=== PATIENT | male | born 1960 | race Caucasian/White ===

== ENCOUNTER 2018-04-13 03:32 | Emergency (ER) | payer BC ==
--- NOTE | 2018-04-13 03:45 | Emergency Department Record ---
History of Present Illness - General Chief Complaint: Fall Injury Stated Complaint: "I THINK I DISLOCATED MY SHOULDER" Time Seen by Provider: 04/13/18 03:38 Source: Patient Mode of Arrival: Ambulatory Limitations: No limitations - History of Present Illness Initial Comments: The patient is here due to R shoulder pain. He slipped and fell onto the R shoulder about 2 hours ago and it is very painful. He denies hitting his head or any other injury. The patient has no hx of R shoulder injuries. The patient had been out drinking prior to the fall and last drank about 2.5 hours ago. Complaint: Fall Onset/Timin -: Hour(s) Fall From: Standing When Fall Occurred: 1-[address] [employer] [address] Fall Occurred: Home Loss of Consciousness: None Prolonged Down Time?: No Symptoms Prior to Fall: None Severity scale (1-10): 10 Associated Symptoms: Denies - Related Data Home Medications Medication Instructions Recorded Confirmed Last Taken Metoprolol Succinate [Toprol Xl] 100 mg PO DAILY 04/13/18 04/13/18 04/12/18 Previous Rx's Medication Instructions Recorded Naproxen [Naprosyn] 500 mg PO BID #14 tablet. 04/13/18 Allergies Allergy/AdvReac Type Severity Reaction Status Date / Time No Known Drug Allergies Allergy Verified 04/13/18 03:34 Travel Screening - Travel/Exposure Within Last 30 Days Have you traveled within the last 30 days?: No - Travel Symptoms Symptom Screening: None Review of Systems Constitutional: Denies: Chills, Fever Eyes: Denies: Eye discharge ENT: Denies: Congestion Respiratory: Denies: Cough, Dyspnea Past Medical History - SOCIAL HISTORY Smoking Status: Never smoker - RESPIRATORY Hx Respiratory Disorders: Yes Hx Sleep Apnea: Yes Hx of CPAP: Yes - CARDIOVASCULAR Hx Cardio Disorders: Yes Hx Hypertension: Yes - NEURO Hx Neuro Disorders: No - GI Hx GI Disorders: No - Hx Genitourinary Disorders: No - ENDOCRINE Hx Endocrine Disorders: No - MUSCULOSKELETAL Hx Musculoskeletal Disorders: No - PSYCH Hx Psych Problems: No - HEMATOLOGY/ONCOLOGY Hx Hematology/Oncology Disorders: No Family Medical History Any Significant Family History?: Yes Hx Diabetes: Mother Physical Exam - General General Appearance: Alert, Oriented x3, Cooperative, No acute distress - Head Head exam: Atraumatic, Normocephalic - Eye Eye exam: Normal appearance, PERRL - Neck Neck exam: Normal inspection, Full ROM. negative: Tenderness - Respiratory Respiratory exam: Normal lung sounds bilaterally. negative: Respiratory distress - Cardiovascular Cardiovascular Exam: Regular rate, Normal rhythm, Normal heart sounds - GI/Abdominal GI/Abdominal exam: Other (The patient is morbidly obese.). negative: Tenderness - Extremities Extremities exam: Tenderness. negative: Normal inspection (There is proximal R humerus tenderness with decreased R shoulder ROM due to pain.), Full ROM Image of Full Body: 1 - Area of pain and tenderness. - Neurological Neurological exam: Alert. negative: Motor sensory deficit Course Vital Signs 04/13/18 03:35 Temperature 98.1 F Pulse Rate 88 Respiratory 20 Rate Blood Pressure 166/103 Pulse Ox 92 L - Reevaluation(s) Reevaluation #1: Procedure note: The patient was given 4 mg of Morphine for pain control and his R shoulder was reduced with traction/ countertraction. There were no complications and the R arm and shoulder were NVI distally after the procedure. 04/13/18 04:30 Reevaluation #2: The patient is doing very well at this time. I did explain the need to stay in the sling for a week and have the shoulder rechecked this week for any rotator cuff injury. 04/13/18 04:37 Medical Decision Making - Data Complexity MDM Data: X-Ray Ordered and/or Reviewed - Radiology Data Radiology results: Report reviewed (R shoulder: Anterior dislocation. Poss. fx at R acromion at AC joint (nontender on exam)) Disposition Disposition: Discharge Clinical Impression: Shoulder dislocation Qualifiers: Encounter type: initial encounter Laterality: right Qualified Code(s): S43.004A - Unspecified dislocation of right shoulder joint, initial encounter Disposition: Home, Self-Care Condition: (2) Stable Instructions: Shoulder Dislocation (ED) Additional Instructions: Please take the Naprosyn for pain and ice the shoulder for [address] Hdz for recheck later this week in the [facility]. Return to the ER for any worsening symptoms or problems. Prescriptions: Naproxen [Naprosyn] 500 mg PO BID #14 tablet. Referrals: [facility] [Provider Group] Forms: Patient Portal Access Time of Disposition: 04:39 Quality - Quality Measures Quality Measures: N/A - Blood Pressure Screening View Details: Yes Does Patient Have Any of the Following: Active Dx of HTN Blood Pressure Classification: Hypertensive Reading Systolic Measurement: 166 Diastolic Measurement: 103 Screening for High Blood Pressure: Patient Exclusion, Hx of HTN [[id number]]
[2018-04-13] MEDS ORDERED: MORPHINE SULFATE 10 MG/ML VIAL IVP ONE (04:11)
[2018-04-13] MEDS ORDERED: ONDANSETRON HCL IV 4 MG/2 ML VIAL IVP ONE (04:11)
--- NOTE | 2018-04-16 08:37 | RADIOLOGY REPORT ---
EXAM: RIGHT SHOULDER, TWO VIEWS HISTORY: PATIENT SLIPPED AND FELL ON THE ICE TWO HOURS AGO. LANDED ON RIGHT SHOULDER. TECHNIQUE: Two views of the right shoulder are provided on 04/13/18 without comparison examination. FINDINGS: There is anterior, inferior dislocation of the right humeral head with respect to the glenoid process. Moderate to significant acromioclavicular hypertrophy is noted. No obvious fractures are identified. IMPRESSION: ANTERIOR, INFERIOR DISLOCATION OF THE RIGHT HUMERAL HEAD WITH RESPECT TO THE GLENOID PROCESS WITHOUT OBVIOUS FRACTURE. FOLLOW-UP PLAIN FILM RADIOGRAPHS CAN BE OBTAINED ONCE REDUCTION HAS OCCURRED. [facility]BER: [id number] [facility]
--- NOTE | 2018-04-16 08:43 | RADIOLOGY REPORT ---
EXAM: RIGHT SHOULDER, TWO VIEWS HISTORY: PATIENT IS STATUS POST REDUCTION OF RIGHT SHOULDER. TECHNIQUE: Two views of the right shoulder are provided along with a comparison study dated 04/13/18. FINDINGS: In the interval the right humeral head has been reduced into the glenoid process. Alignment of the right shoulder is anatomic. Acromioclavicular hypertrophy is again noted. There is a prominent contour deformity adjacent to the junction of the humeral head and greater tuberosity suggesting a Hill-Sachs deformity. No obvious Bankart lesions are identified. If there is further clinical concern then MRI of the right shoulder can be obtained for further evaluation. IMPRESSION: 1. INTERVAL REDUCTION OF RIGHT HUMERAL HEAD INTO THE GLENOID PROCESS IS NOTED. ALIGNMENT IS ANATOMIC. 2. POSSIBLE HILL-SACHS DEFORMITY AT THE JUNCTION OF THE HEAD AND GREATER TUBEROSITY OF THE RIGHT HUMERUS. IF THERE IS FURTHER CLINICAL CONCERN FOR BANKART LESIONS THEN AN MRI OF THE RIGHT SHOULDER CAN BE OBTAINED FOR FURTHER EVALUATION. [facility]: [id number] [facility]
== END 2018-04-13 04:49 | disposition home or self-care (01) ==
LOC: ER 03:32
DX: S43.004A Unspecified dislocation of right shoulder joint, initial encounter (principal); W18.30XA Fall on same level, unspecified, initial encounter
CPT/HCPCS: 23650 ×2; 99284 ×2; 96374; 73030; J2405; J2270